=== PATIENT | female | born 1990 | race Caucasian/White ===

== ENCOUNTER 2024-02-26 04:23 | Inpatient (IN) | payer OTHER ==
[2024-02-24 11:02] VITALS: BMI 31.9
[2024-02-26] MEDS ORDERED: PROPOFOL 20 ML ONE (13:28)
[2024-02-26] MEDS ORDERED: MIDAZOLAM HCL 2 MG/2 ML SINGLE DOSE VIAL ONE (13:29)
[2024-02-26] MEDS ORDERED: ROCURONIUM BROMIDE 50 MG/5 ML SYRINGE ONE (14:07)
[2024-02-26] MEDS: ceFAZolin SODIUM 1 GM VIAL IVPB ONE (14:20)
[2024-02-26] MEDS ORDERED: HYDROmorphone HCl 2 MG/ML VIAL ONE (15:09)
[2024-02-26] MEDS ORDERED: SUGAMMADEX SODIUM 200 MG/2 ML VIAL ONE (15:11)
[2024-02-26] MEDS ORDERED: oxyCODONE HCL 5 MG TABLET PO PRN (16:44)
[2024-02-26] MEDS ORDERED: ONDANSETRON 4 MG/2 ML VIAL IVPUSH PRN (16:44)
[2024-02-26] MEDS: ACETAMINOPHEN 325 MG TABLET (FP) PO SCH (16:45)
[2024-02-26] MEDS: LACTATED RINGERS SOLUTION 1,000 ML IV SCH (17:07)
[2024-02-26 18:43] VITALS: RESP 18
[2024-02-26] MEDS: SIMETHICONE 80 MG TAB.CHEW (FP) PO PRN (20:16)
[2024-02-26] MEDS: IBUPROFEN 800 MG/8 ML IJ IVPB PRN (20:16)
[2024-02-26] MEDS: SOD BORATE/BORIC AC/WATER/NACL (EYE WASH) 118 ML BOTTLE OD ONE (20:54)
[2024-02-27] MEDS: DOCUSATE SODIUM 100 MG CAPSULE (FP) PO PRN (00:46)
[2024-02-27] MEDS: oxyCODONE HCL 5 MG TABLET PO PRN (00:48)
[2024-02-27] MEDS: CEFAZOLIN 1 GM/D5W 1 GM/50 ML BAG IVPB SCH (01:52)
[2024-02-27 07:43] LABS: HEMOGLOBIN 11.3 GM/dL (10.7-15.3); MCH 27.5 pg (25.7-33.7); MCHC 33.2 g/dl (32.0-36.0); MEAN CELL VOLUME 82.8 fl (80-96); MEAN PLT VOLUME 7.3 fl (7.5-11.1); PLATELET COUNT 274 10^3/uL (134-434); RDW 13.6 % (11.6-15.6)
[2024-02-27 08:31] LABS: POTASSIUM 3.7 mmol/L (3.5-5.1)
[2024-02-27 08:33] LABS: BLOOD UREA NITROGEN 8.8 mg/dL (7-18)
[2024-02-27 08:34] LABS: CALCIUM 7.5 mg/dL (8.5-10.1)
[2024-02-27 08:36] LABS: CREATININE 0.6 mg/dL (0.55-1.3)
[2024-02-27] MEDS: ENOXAPARIN NA (PORCINE) 40 MG/0.4 ML DISP.SYRIN SQ SCH (09:39)
[2024-02-27] MEDS: BISACODYL 5 MG TABLET.DR (FP) PO PRN (13:24)
[2024-02-27] MEDS: IBUPROFEN 600 MG TABLET (FP) PO PRN (20:42)
[2024-02-28 09:47] VITALS: BP 125/73; PULSE 71; TEMP 98.6
== END 2024-02-28 12:30 | disposition home or self-care (01) | DRG 513 ==
LOC: J2C 04:23 → J3W 20:05
PROVIDERS: ADMIT Obstetrics & Gynecology; ATTEND Obstetrics & Gynecology
PROC: 0UB10ZZ Excision of Left Ovary, Open Approach (ICD-10-PCS; principal; 2024-02-27)
PROC: 10T20ZZ Resection of Products of Conception, Ectopic, Open Approach (ICD-10-PCS; 2024-02-27)
PROC: 3E1M38Z Irrigation of Peritoneal Cavity using Irrigating Substance, Percutaneous Approach (ICD-10-PCS; 2024-02-27)
DX: N83.292 Other ovarian cyst, left side (principal); N83.8 Other noninflammatory disorders of ovary, fallopian tube and broad ligament; K59.00 Constipation, unspecified; N92.6 Irregular menstruation, unspecified; R10.2 Pelvic and perineal pain
CPT/HCPCS: 36415; 80048; 81025; 85027; 86850; 86900; 86901; 88108; 88305-TC; 88307-TC; 94760